=== PATIENT | female | born 1950 | race Caucasian/White ===

== ENCOUNTER 2017-05-13 08:31 | Outpatient (CLI) | payer MEDICARE ==
[2017-05-13 09:54] LABS: #Eosinphils 0.2 thou/uL (0.0-0.7); #Lymphocytes 1.9 thou/uL (1.20-3.40); #Monocytes 0.5 thou/uL (0.11-0.59); #Neutrophils 3.8 thou/uL (1.40-6.50); %Basophils 0.3 % (0.0-1.0); %Eosinophils 3.6 % (0.0-10.0); %Lymphocytes 29.8 % (21.0-51.0); %Monocytes 7.5 % (0.0-10.0); Hematocrit 43.5 % (36.0-47.0); Mean Platelet Volume 7.3 fL (7.4-10.4); White Blood Cell (WBC) Count 6.4 thou/uL (4.8-10.8)
[2017-05-13 10:17] LABS: Anion Gap 11 mmol/L (10-20); BUN (Urea Nitrogen) 13 mg/dL (9.8-20.1); Calc. Creatinine Clearance 0 mL/min (70-130); Carbon Dioxide 28 mmol/L (23-31); Chloride 107 mmol/L (98-107); Estimated GFR-MDRD 80
== END 2017-05-13 08:32 | disposition home or self-care (01) ==
LOC: LABBT 08:31
PROVIDERS: ATTEND Specialist
DX: Z01.818 Encounter for other preprocedural examination (principal); K43.2 Incisional hernia without obstruction or gangrene
CPT/HCPCS: 80048; 85025; 93005; 93010

== ENCOUNTER 2017-05-19 07:49 | Day surgery (SDC) | payer MEDICARE ==
[2017-05-13 08:55] VITALS: BMI 36.5
[2017-05-19] MEDS ORDERED: Ketorolac Tromethamine 30 MG/ML VIAL ONE (08:08)
[2017-05-19] MEDS ORDERED: Bicitra 30 ML UDCUP ONE (08:26)
[2017-05-19] MEDS ORDERED: Bupivacaine HCl 0.5%/Epinephrine 1:200,000/PF 30 ml Vial ONE (10:13)
[2017-05-19] MEDS ORDERED: Fentanyl 250 MCG/5 ML VIAL ONE (10:14)
[2017-05-19] MEDS ORDERED: Lidocaine 1% PF 5 ML VIAL ONE (10:44)
[2017-05-19] MEDS ORDERED: Propofol 200 MG/20 ML VIAL ONE (10:44)
[2017-05-19] MEDS ORDERED: PHENYLEPHRINE-NS 100 MCG/ML 10 ML SYRINGE ONE (10:44)
[2017-05-19] MEDS ORDERED: Ondansetron HCl/PF 4 MG/2 ML Vial ONE (10:44)
[2017-05-19] MEDS ORDERED: Succinylcholine Chloride 20 MG/ML 10 ml SYRINGE FS ONE (10:44)
[2017-05-19] MEDS ORDERED: Glycopyrrolate 0.2 MG/ML 5 ML SYRINGE ONE (10:44)
[2017-05-19] MEDS ORDERED: Fentanyl 100 MCG/2 ML VIAL ONE (14:23)
[2017-05-19] MEDS ORDERED: HYDROcodone/Acetaminophen 5/325 mg Tablet ONE (16:02)
--- NOTE | 2017-05-20 10:10 | OP ---
DATE OF PROCEDURE: 05/19/2017 PREOPERATIVE DIAGNOSIS: Ventral incisional hernia. POSTOPERATIVE DIAGNOSIS: Ventral incisional hernia. OPERATION PERFORMED: Robotic repair of a 12 x 5 cm upper abdominal incisional hernia with mesh cesar rossy. SURGEON: Jean Paul Alfaro M.D. ANESTHESIA: General endotracheal. INDICATIONS: The patient is a 66-year-old white female. She had undergone an upper abdominal surge ry utilizing a Chevron incision. She developed a wide hernia in her upper abdomen demonstrated on r ecent CT scan. She presents at this time for repair of this. DESCRIPTION OF OPERATION: Informed consent was obtained. The patient was taken to the operating ro om where general endotracheal anesthesia was obtained with the patient in supine position. Abdomen was prepped with ChloraPrep and draped in sterile fashion. Local anesthetic was infiltrated and a 1 2 mm infraumbilical incision was created through which a Veress needle was passed into the peritonea l cavity and pneumoperitoneum established using carbon dioxide up to a pressure of 15 mmHg. A 12 mm trocar port was passed through this same incision. Laparoscopic camera was passed this port. Unde r direct vision, two additional 8 mm robotic ports were placed, one in the right lower abdomen and o ne in the left lower abdomen. I finally placed an 11 mm assist port in the right lower quadrant. The robot was docked over the patient's right shoulder to the ports and the camera and the operation was continued from the console. There were substantial omental adhesions to the anterior abdominal wall and up within the hernia sac . There were a couple of areas of bowel appeared to be close to the abdominal wall as well. I meti culously dissected each of these adhesions using robotic guidance. There was never a point at which the bowel was close to being injured. I also cleared the falciform ligament in a superior fashion. After clearing all adhesions, I examined the obvious hernia defect. This appeared to be about 12 cm in width by about 5 cm in vertical dimension. I decided to close this using a running suture of 2- 0 Stratafix suture. This was begun from the right side and run towards the left for the full length of 1 suture. I then obtained a second suture and close this from left to right, overlapping signif icantly with the first suture. The pressure was dropped down to 7 to allow closure of the fascia wi thout undue tension. After the fascia was appropriately closed, pneumoperitoneum was reinstituted. I chose a 10 x 15 cm Ventralex mesh patch. This was passed into the abdominal cavity. A single stay suture of 0 Vicryl was placed in the center of the mesh patch and used to center the mesh in regards to the hernia that was closed. With held in place in this fashion, I closed the external aspect of the mesh using a r unning suture of 2-0 Stratafix. Bidirectional suture was utilized beginning from the midportion of the mesh on the superior aspect. This was then closed continuously around both sides with the sutur es again overlapping significantly on the inferior aspect. I then obtained 2-0 Ethibond suture and placed 4 interrupted [id number] sutures around the mesh . Three of these were placed around the circumference well, one was placed up within the center of the mesh, tacking it to the fascia near its midpoint. After all sutures were placed, the fascial de fect at the 12 mm port site was closed with 0 Vicryl suture using a GraNee needle. I also closed th e 11 mm defect in a similar fashion. All ports and instruments were removed under direct vision. P neumoperitoneum was carefully evacuated. Quarter percent Marcaine with epinephrine was infiltrated in each port site. Skin edges approximated with 4-0 Monocryl subcuticular suture and Dermabond was placed externally. There were no complications. The patient tolerated the procedure well and was t aken to recovery room in stable condition.
== END 2017-05-19 17:30 | disposition home or self-care (01) ==
LOC: SDC 07:49
PROVIDERS: ATTEND Specialist
PROC: 0WUF0JZ Supplement Abdominal Wall with Synthetic Substitute, Open Approach (ICD-10-PCS; principal; 2017-05-19)
DX: K43.2 Incisional hernia without obstruction or gangrene (principal); E03.9 Hypothyroidism, unspecified; J30.2 Other seasonal allergic rhinitis; M19.90 Unspecified osteoarthritis, unspecified site; H26.9 Unspecified cataract; Z79.899 Other long term (current) drug therapy; Z96.651 Presence of right artificial knee joint; Z90.89 Acquired absence of other organs; Z90.710 Acquired absence of both cervix and uterus; Z98.890 Other specified postprocedural states; Z86.711 Personal history of pulmonary embolism; Z87.891 Personal history of nicotine dependence
CPT/HCPCS: 96374; J0131; J0670; J1885; J2001; J2405; J2704; J3010

== ENCOUNTER 2017-06-29 21:33 | Emergency (ER) | payer MEDICARE ==
[2017-06-29 22:26] LABS: #Eosinphils 0.4 thou/uL (0.0-0.7); #Lymphocytes 2.2 thou/uL (1.20-3.40); #Monocytes 0.6 thou/uL (0.11-0.59); #Neutrophils 5.1 thou/uL (1.40-6.50); %Basophils 0.3 % (0.0-1.0); %Eosinophils 4.3 % (0.0-10.0); %Lymphocytes 26.4 % (21.0-51.0); %Monocytes 7.6 % (0.0-10.0); Hematocrit 40.4 % (36.0-47.0); Mean Platelet Volume 7.3 fL (7.4-10.4); Red Blood Cell (RBC) Count 4.49 mill/uL (4.20-5.40); White Blood Cell (WBC) Count 8.4 thou/uL (4.8-10.8)
[2017-06-29 22:46] LABS: ALT (SGPT) 24 U/L (8-55); AST (SGOT) 19 U/L (5-34); Alkaline Phosphatase 93 U/L (40-150); Anion Gap 11 mmol/L (10-20); BUN (Urea Nitrogen) 15 mg/dL (9.8-20.1); Bilirubin, Total 0.4 mg/dL (0.2-1.2); Calc. Creatinine Clearance 0 mL/min (70-130); Calcium 9.3 mg/dL (7.8-10.44); Carbon Dioxide 24 mmol/L (23-31); Chloride 106 mmol/L (98-107); Estimated GFR-MDRD 78; Globulin 2.9 g/dL (2.4-3.5); Protein, Total 6.7 g/dL (6.0-8.3)
== END 2017-06-29 23:40 | disposition home or self-care (01) ==
LOC: ERS 21:33
DX: M96.840 Postprocedural hematoma of a musculoskeletal structure following a musculoskeletal system procedure (principal); E03.9 Hypothyroidism, unspecified; Z98.890 Other specified postprocedural states; Z79.82 Long term (current) use of aspirin; Z79.899 Other long term (current) drug therapy
CPT/HCPCS: 36415; 80053; 85025; 99283

== ENCOUNTER 2017-10-31 07:35 | Outpatient (CLI) | payer MEDICARE ==
[2017-10-31] MEDS ORDERED: Iopamidol 370 76% 100 ML VIAL ONE (09:26)
--- NOTE | 2017-10-31 09:51 | CT ---
CT ABDOMEN WITH IV CONTRAST: Multiple axial tomograms obtained through the abdomen with IV enhancement. Oral contrast was not adm inistered. INDICATION: Recurrent ventral incisional hernia. COMPARISON: No comparison studies. FINDINGS: Lung bases are clear. The liver is unremarkable. There are post cholecystectomy changes. There is a small sliding diaphrag matic hernia. Pancreas is unremarkable. There is a small low-density focus seen peripheral spleen measuring 1.2 cm. Peripheral location with somewhat of a wedge-shaped configuration could indicate a small splenic infarct. Other consideratio ns include small splenic cyst. Visualized bowel loops appear normal caliber. Aorta is normal caliber. No adenopathy identified. T he adrenal glands and kidneys are unremarkable. There is an anterior abdominal wall hernia seen to the left of midline superior to the umbilicus. Th e abdominal wall defect measures approximately 3 cm width in the axial plane. Mesentery herniates th rough this defect. A small hernia sac within the subcutaneous tissues measures 5 cm width in the axi al plane. IMPRESSION: 1. Small anterior abdominal wall hernia to the left of midline is noted as described above. 2. Small low-density focus in the peripheral spleen as described above. 3. Small sliding diaphragmatic hernia. POS: [facility]
== END 2017-10-31 07:36 | disposition home or self-care (01) ==
LOC: CT 07:35
PROVIDERS: ATTEND Specialist
DX: K43.2 Incisional hernia without obstruction or gangrene (principal); K44.9 Diaphragmatic hernia without obstruction or gangrene
CPT/HCPCS: 74160; 82565

== ENCOUNTER 2018-06-08 12:05 | Outpatient (CLI) | payer MEDICARE ==
[2018-06-08 14:12] LABS: #Basophils 0.1 thou/uL (0.0-0.2); #Eosinphils 0.2 thou/uL (0.0-0.7); #Lymphocytes 1.6 thou/uL (1.20-3.40); #Monocytes 0.5 thou/uL (0.11-0.59); #Neutrophils 5.6 thou/uL (1.40-6.50); %Basophils 0.7 % (0.0-1.0); %Eosinophils 2.2 % (0.0-10.0); %Monocytes 5.7 % (0.0-10.0); %Neutrophils 71.3 % (42.0-75.0); Hemoglobin 14.4 g/dL (12.0-16.0); Mean Corpuscular Hemoglobin 29.6 pg (27.0-31.0); Mean Corpuscular Volume 92.5 fL (78.0-98.0); Mean Platelet Volume 8.2 fL (7.4-10.4); Platelet Count 177 thou/uL (130-400); RBC Distribution Width 12.4 % (11.5-14.5); Red Blood Cell (RBC) Count 4.86 mill/uL (4.20-5.40); White Blood Cell (WBC) Count 7.9 thou/uL (4.8-10.8)
[2018-06-08 14:32] LABS: Anion Gap 10 mmol/L (10-20); BUN (Urea Nitrogen) 19 mg/dL (9.8-20.1); Calc. Creatinine Clearance 0 mL/min (70-130); Calcium 9.5 mg/dL (7.8-10.44); Carbon Dioxide 26 mmol/L (23-31); Chloride 107 mmol/L (98-107); Estimated GFR-MDRD 75; Glucose 85 mg/dL (80-115); Potassium 3.9 mmol/L (3.5-5.1); Sodium 139 mmol/L (136-145)
--- NOTE | 2018-06-08 17:18 | EKG ---
Test Reason : Blood Pressure : / mmHG Vent. Rate : 064 BPM Atrial Rate : 064 BPM P-R Int : 144 ms QRS Dur : 080 ms QT Int : 386 ms P-R-T Axes : 040 051 070 degrees QTc Int : 398 ms Normal sinus rhythm ns st changes When compared with ECG of 13-MAY-2017 09:23, No significant change was found Confirmed by DR. Santiago JOHNSON ([id number]) on 06/08/2018 5:17:58 PM Referred By: DELORES Confirmed By:DR. Santiago JOHNSON
== END 2018-06-08 12:06 | disposition home or self-care (01) ==
LOC: LABBT 12:05
PROVIDERS: ATTEND Specialist
DX: Z01.818 Encounter for other preprocedural examination (principal); K43.2 Incisional hernia without obstruction or gangrene
CPT/HCPCS: 80048; 85025; 93005; 93010

== ENCOUNTER 2018-06-13 11:47 | Day surgery (SDC) | payer MEDICARE ==
[2018-06-08 12:20] VITALS: BMI 31.6
[2018-06-13] MEDS ORDERED: Ketorolac Tromethamine 30 MG/ML VIAL ONE ×2 (12:42→16:27)
[2018-06-13] MEDS ORDERED: CEFAZOLIN 2 GM/50 ML BAG ONE (12:42)
[2018-06-13] MEDS ORDERED: Famotidine/PF 20 mg/2ml Vial ONE (14:19)
[2018-06-13] MEDS ORDERED: Fentanyl 250 MCG/5 ML VIAL ONE (16:25)
[2018-06-13] MEDS ORDERED: Lidocaine 1% PF 5 ML VIAL ONE (16:27)
[2018-06-13] MEDS ORDERED: ePHEDrine/0.9% NaCl/PF SYRINGE 50 mg/10 ml ONE (16:27)
[2018-06-13] MEDS ORDERED: Ondansetron PF 4 MG/2 ML Vial ONE (16:27)
[2018-06-13] MEDS ORDERED: PROPOFOL 200 MG/20 ML VIAL ONE (16:27)
[2018-06-13] MEDS ORDERED: Dexamethasone 20 MG/5 ML VIAL ONE (16:27)
[2018-06-13] MEDS ORDERED: Bupivacaine/Epinephrine 0.25% 30 ML VIAL ONE (16:37)
[2018-06-13] MEDS ORDERED: Fentanyl 100 MCG/2 ML VIAL ONE ×2 (16:51→20:00)
[2018-06-13] MEDS ORDERED: HYDROmorphone 2 MG/ML VIAL ONE (16:51)
[2018-06-13] MEDS ORDERED: Morphine 2 MG/ML SYRINGE ONE (20:53)
[2018-06-13] MEDS ORDERED: HYDROcodone/Acetaminophen 5/325 mg Tablet ONE (21:18)
--- NOTE | 2018-06-14 15:44 | OP ---
DATE OF PROCEDURE: 06/13/2018 PREOPERATIVE DIAGNOSES: Robotic repair of ventral incisional hernia. SURGEON: Dr. Jean Paul Alfaro ANESTHESIA: General endotracheal. INDICATIONS: The patient is a 67-year-old white female. About a year ago, I repaired a large incisi onal hernia from her upper abdominal Chevron incision. This was a lengthy hernia that extended along the entire length of the prior incision. This was repaired robotically. Several months afterwards she developed a new/recurrent hernia at the far left aspect. It is uncertain whether this was a new hernia or recurrence of the same one. I recommended repair. Additionally, she complained of a sensa tion of some discomfort/movement to the right side of her abdomen and I inspected this as well. OPERATIVE PROCEDURE IN DETAIL: Informed consent was obtained. The patient was taken to the operatin g room where general endotracheal anesthesia obtained with the patient in supine position. Abdomen w as prepped with ChloraPrep and draped in sterile fashion. Local anesthetic was infiltrated using 0.2 5% Marcaine with epinephrine and a 12 mm infraumbilical incision was created through which a Veress n eedle was passed into the peritoneal cavity and pneumoperitoneum established using carbon dioxide up to a pressure of 15 mmHg. A 12 mm trocar was passed through this same incision. Laparoscopic camera was passed through this port. Under direct vision, I placed 2 additional 8 mm ports on either side of midline. There were some omental adhesions up to the anterior abdominal wall that extended down close to the m idline port. These were taken down sharply until the robot could be appropriately docked. The robot was then docked to the 3 ports and the camera and operation was continued from the console. Immediately I was able to see the hernia to the far left site of the prior repair. I carefully took down omental adhesions to the anterior abdominal wall and into the patch. Examination revealed that there had been an excellent epithelialization of the patch and in most areas it was difficult to disc bulmaro. It appeared that the hernia was at the exact far edge of the patch on the patient's left hand s betzaida. There was no patch rolled up into the hernia to indicate that the mesh patch had moved. Because of her concerns, I spent a long time trying to lyse the adhesions to the right side of the ab domen. There were some areas of colon that was close to the mesh, but I was able to mobilize this do wn off of the mesh. The mesh was flush and in excellent position with no evidence of any inversion o r hernia. The vast majority of the adhesions were mobilized. I then turned my attention back over t o the hernia. I cleared the fascia around the hernia defect. When this was measured, this was found to be about 2 cm wide x 4 cm in length and this was in a vertical/longitudinal fashion. The defect was closed with a running suture of #1 V-Loc. This was closed in a to and fro fashion inc orporating excellent bites of tissue on each side. I then obtained an 8 cm Ventralex mesh patch. Th e tails were trimmed off of this and it was passed into the abdominal cavity. This was secured to th e center of the repair with a #1 V-Loc suture. I then circumferentially sewed the patch to the abdom inal wall with a running suture of 2-0 V-Loc. This required 2 suture lengths to complete. It was ex cellently approximated against the abdominal wall. The 12 mm port site was closed with 0 Vicryl and a GraNee needle. All ports and instruments removed under direct vision. Pneumoperitoneum was carefully evacuated. Quarter percent Marcaine with epinep hrine was infiltrated at each port site. Skin edges approximated with 4-0 Monocryl subcuticular sutu re. Dermabond was placed externally. A compression dressing was placed over the hernia sac with a b paul and a Kerlix roll.
== END 2018-06-13 22:19 | disposition home or self-care (01) ==
LOC: SDC 11:47
PROVIDERS: ATTEND Specialist
PROC: 0WUF4JZ Supplement Abdominal Wall with Synthetic Substitute, Percutaneous Endoscopic Approach (ICD-10-PCS; principal; 2018-06-13)
DX: K43.2 Incisional hernia without obstruction or gangrene (principal); K66.0 Peritoneal adhesions (postprocedural) (postinfection); E03.9 Hypothyroidism, unspecified; J30.2 Other seasonal allergic rhinitis; Z87.891 Personal history of nicotine dependence; Z79.82 Long term (current) use of aspirin; Z79.899 Other long term (current) drug therapy; Z98.890 Other specified postprocedural states
CPT/HCPCS: 49654; 96374 ×2; C1781; J0131; J1100; J1170; J1885; J2001; J2270; J2405; J2704; J3010; S0028

== ENCOUNTER 2019-04-30 07:20 | Outpatient (CLI) | payer MEDICARE ==
[2019-04-30 14:45] LABS: #Basophils 0.1 thou/uL (0.0-0.2); #Eosinphils 0.1 thou/uL (0.0-0.7); #Lymphocytes 1.6 thou/uL (1.20-3.40); #Monocytes 0.4 thou/uL (0.11-0.59); #Neutrophils 4.2 thou/uL (1.40-6.50); %Basophils 0.9 % (0.0-1.0); %Eosinophils 1.8 % (0.0-10.0); %Neutrophils 66.3 % (42.0-75.0); Hemoglobin 14.5 g/dL (12.0-16.0); Mean Corpuscular HGB CONC 33.7 g/dL (32.0-36.0); Mean Corpuscular Hemoglobin 30.1 pg (27.0-31.0); Mean Corpuscular Volume 89.5 fL (78.0-98.0); Platelet Count 168 thou/uL (130-400); RBC Distribution Width 12.4 % (11.5-14.5); White Blood Cell (WBC) Count 6.3 thou/uL (4.8-10.8)
[2019-04-30 15:05] LABS: Anion Gap 12 mmol/L (10-20); BUN (Urea Nitrogen) 12 mg/dL (9.8-20.1); Calc. Creatinine Clearance 0 mL/min (70-130); Carbon Dioxide 26 mmol/L (23-31); Chloride 105 mmol/L (98-107); Estimated GFR-MDRD 64; Glucose 118 mg/dL (80-115); Potassium 3.7 mmol/L (3.5-5.1); Sodium 139 mmol/L (136-145)
--- NOTE | 2019-05-02 19:50 | EKG ---
Test Reason : Blood Pressure : / mmHG Vent. Rate : 078 BPM Atrial Rate : 078 BPM P-R Int : 136 ms QRS Dur : 078 ms QT Int : 374 ms P-R-T Axes : 039 048 070 degrees QTc Int : 426 ms Normal sinus rhythm Cannot rule out Anterior infarct , age undetermined Abnormal ECG When compared with ECG of 08-JUN-2018 12:45, Minimal criteria for Anterior infarct are now Present Nonspecific T wave abnormality, worse in Lateral leads Confirmed by RICHIE FONTANA, DR. Krishnan (4) on 05/02/2019 7:50:25 PM Referred By: RACHAEL Confirmed By:DR. Ariella QUIROZ MD
== END 2019-04-30 07:21 | disposition home or self-care (01) ==
LOC: LABBT 07:20
PROVIDERS: ATTEND Surgery
DX: Z01.818 Encounter for other preprocedural examination (principal); C50.919 Malignant neoplasm of unspecified site of unspecified female breast
CPT/HCPCS: 80048; 85025; 93005; 93010

== ENCOUNTER 2019-04-30 13:25 | Outpatient (CLI) | payer MEDICARE ==
--- NOTE | 2019-04-30 14:05 | ULT ---
RIGHT AXILLARY ULTRASOUND: Date: 04/30/19 INDICATION: Rule out axillary lymphadenopathy. FINDINGS: Survey view of the right axilla demonstrates a single, benign-appearing lymph node within the right a xilla, measuring 0.97 x 0.51 cm. The lymph node cortex measured 2.0 mm. No additional lymph node was identified. IMPRESSION: No lymphadenopathy evident within the right axilla. POS: [facility]
== END 2019-04-30 13:26 | disposition home or self-care (01) ==
LOC: BICULT 13:25
PROVIDERS: ATTEND Surgery
DX: C50.919 Malignant neoplasm of unspecified site of unspecified female breast (principal)
CPT/HCPCS: 76999; 80048; 85025; 93005; 93010

== ENCOUNTER 2019-05-04 07:14 | Day surgery (SDC) | payer MEDICARE ==
[2019-04-30 12:57] VITALS: BMI 32.4
[2019-05-04] MEDS ORDERED: Lidocaine 2% PF 5 ML VIAL ONE (10:15)
[2019-05-04] MEDS ORDERED: Methylene Blue 50 MG/10 ML AMPUL ONE (10:15)
[2019-05-04] MEDS ORDERED: Bupivacaine/Epinephrine 0.25% 30 ML VIAL ONE (10:15)
[2019-05-04] MEDS ORDERED: Fentanyl 100 MCG/2 ML VIAL ONE ×2 (11:20→13:13)
[2019-05-04] MEDS ORDERED: Midazolam HCl 2 mg/2 ml Vial ONE (11:20)
[2019-05-04] MEDS ORDERED: Rocuronium Bromide 10 MG/ML (10ML VIAL) ONE (11:39)
[2019-05-04] MEDS ORDERED: Ondansetron PF 4 MG/2 ML Vial ONE (11:39)
[2019-05-04] MEDS ORDERED: Dexamethasone 20 MG/5 ML VIAL ONE (11:39)
[2019-05-04] MEDS ORDERED: Glycopyrrolate 0.2 MG/ML 5 ML SYRINGE ONE (11:39)
[2019-05-04] MEDS ORDERED: Lidocaine 1% PF 5 ML VIAL ONE (11:39)
[2019-05-04] MEDS ORDERED: PROPOFOL 200 MG/20 ML VIAL ONE (11:39)
[2019-05-04] MEDS ORDERED: Morphine 4 MG/ML VIAL ONE ×2 (12:53→13:08)
[2019-05-04] MEDS ORDERED: Morphine Sulfate 2 MG/ML SYRINGE SLOW IVP PRN (13:11)
[2019-05-04] MEDS ORDERED: Promethazine HCl 25 MG/ML VIAL IM/IV PRN (13:11)
[2019-05-04] MEDS ORDERED: Ondansetron HCl/PF 4 MG/2 ML Vial IVP PRN (13:11)
[2019-05-04] MEDS ORDERED: Non-Formulary Medication 1 EACH PO PRN (13:11)
[2019-05-04] MEDS ORDERED: PACU-Morphine 4MG/ML VIAL SLOW IVP PRN (13:11)
--- NOTE | 2019-05-04 13:18 | MMO ---
Needle localization right breast HISTORY: Right breast cancer. FINDINGS: After signed procedure and answering all questions, the microcalcification cluster and biop sy clip at the medial aspect of the right breast was visualized. Sterile technique, buffered local anesthesia, mammographic guidance, and a medial approach were used to carefully advance a 5 cm Elizabeth needle and wire to the posterior margin of the microcalcification cluster, hook encircling the localization clip and cluster. Position was confirmed with mammography. Patient tolerated the procedu re well and was transferred in good condition. IMPRESSION: Technically successful needle localization right breast cancer.
--- NOTE | 2019-05-04 13:23 | MMO ---
NEEDLE LOCALIZATION RIGHT BREAST SURGICAL SPECIMEN MAMMOGRAPHY RIGHT BREAST HISTORY: Right breast cancer. FINDINGS: After explaining the procedure and answering all questions, the microcalcification cluster and biopsy clip at the medial aspect of the right breast was visualized. Sterile technique, buffered local anesthesia, mammographic guidance, and a medial approach were used to carefully advanc e a 5 cm Palm needle and wire through the posterior margin of the microcalcification cluster. The wire encircles the microcalcification cluster and clip. Patient tolerated the procedure well and was transferred to day surgery in good condition. Mammographic evaluation of the surgical specimen obtained by Dr. Ulloa shows the localization wire, clip, and microcalcification cluster within the tissue. IMPRESSION: Technically successful needle localization right breast cancer.
--- NOTE | 2019-05-04 13:32 | NM ---
Lymphoscintigraphy right breast HISTORY: Right breast cancer. FINDINGS: After explaining the procedure and answering all questions, the anterior aspect of the righ t breast was cleansed. Sterile technique was then used to place a total volume of 1 cc liquid containing 367 uCi technetium 99m filtered sulfur colloid in 4 equal aliquots into the skin at the 12 :00, 3:00, 6:00, and 9:00 periareolar positions of the right breast. Injection sites were massaged by the patient and imaging performed. Immediate images show collection radiotracer at the axillary tail of the right breast. Skin overlying the sentinel node was marked and patient sent for day surgery. Patient tolerated the procedure well and was transferred in good condition. IMPRESSION: Technically successful lymphoscintigraphy right breast revealing axillary sentinel node.
[2019-05-04] MEDS ORDERED: HYDROcodone/Acetaminophen 5/325 mg Tablet ONE (14:22)
--- NOTE | 2019-05-04 15:15 | OP ---
DATE OF PROCEDURE: 05/04/2019 PREOPERATIVE DIAGNOSIS: Right breast cancer. POSTOPERATIVE DIAGNOSIS: Right breast cancer. PROCEDURE PERFORMED: 1. Right partial mastectomy after needle localization. 2. Right deep axillary node sentinel node protocol. ANESTHESIA: General. ESTIMATED BLOOD LOSS: Minimal. COMPLICATIONS: None. FINDINGS: Right breast cancer. DESCRIPTION OF PROCEDURE: The patient was taken to the operating room and laid supine on the operating room table. After general anesthetic was obtained, the bilateral 5 mL of methylene blue dye was infiltrated on the right nipple and massaged for 10 minutes. The right chest breast was prepped and draped in a sterile fashion. Curved incision was made in the right axilla. Scar dissected down through clavipectoral fascia. The Neoprobe was used to find a blue node and area of increased uptake on the gamma probe. This lymph node had high counts on the back table. The background count dropped to near zero. Sent to Pathology for final pathology. An incision was made near the entrance of the needle localization wire in the right upper chest. Flaps were raised superomedially and inferolaterally around the end of the needle localization wire, sent to x-ray for specimen x-ray. This specimen was marked with 2 short superior, one long lateral, and sent to Path for final diagnosis. The wound was irrigated. Local anesthetic was applied. The wound was closed using 3-0 Vicryl, 4-0 Monocryl, and Dermabond. The patient was sent to Recovery in stable condition. All instrument counts, needle counts, and lap counts were correct. Job ID: [id number]
== END 2019-05-04 15:08 | disposition home or self-care (01) ==
LOC: SDC 07:14
PROVIDERS: ATTEND Surgery
PROC: 0HBT0ZZ Excision of Right Breast, Open Approach (ICD-10-PCS; principal; 2019-05-04)
PROC: 07B50ZZ Excision of Right Axillary Lymphatic, Open Approach (ICD-10-PCS; 2019-05-04)
DX: D05.11 Intraductal carcinoma in situ of right breast (principal); E03.9 Hypothyroidism, unspecified; Z79.82 Long term (current) use of aspirin; Z79.899 Other long term (current) drug therapy
CPT/HCPCS: 19281; 19301; 38525; 38900; 76098; 78195; A9541; Q9968; 88307; 88341; 88342; J0690; J1100; J2001; J2250; J2270; J2405; J2704; J3010

== ENCOUNTER 2019-08-02 09:26 | Outpatient (CLI) | payer MEDICARE ==
--- NOTE | 2019-08-02 10:21 | BD ---
DEXA BONE DENSITY STUDY: HISTORY: Postmenopausal. FINDINGS: Lumbar Spine: BMD (g/cm2) L1 0.826 T-Score: -1.5 L2 0.860 T-Score: -1.5 L3 0.921 T-Score: -1.5 L4 0.932 T-Score: -1.2 L1-L4 0.889 T-Score: -1.4 Femoral Neck: 0.603 T-Score: -2.2 Total Femur: 0.775 T-Score: -1.4 Impression: 1. Osteopenia of the lumbar spine and left femoral neck. 2. Ten-year fracture risk of a major osteoporotic fracture is 12% and a hip fracture of 2.3%. These fracture probabilities were calculated for an untreated patient. POS: [facility]
== END 2019-08-02 09:27 | disposition home or self-care (01) ==
LOC: BICMAMMO 09:26
PROVIDERS: ATTEND Internal Medicine Hematology & Oncology
DX: Z13.820 Encounter for screening for osteoporosis (principal); N95.9 Unspecified menopausal and perimenopausal disorder; C50.211 Malignant neoplasm of upper-inner quadrant of right female breast; M85.89 Other specified disorders of bone density and structure, multiple sites
CPT/HCPCS: 77080

== ENCOUNTER 2020-01-03 16:06 | Outpatient (CLI) | payer MEDICARE ==
--- NOTE | 2020-01-03 16:47 | RAD ---
LEFT RIBS: 01/03/20 Three views. HISTORY: Contusion left chest. No evidence of left rib fracture identified. No rib lesions seen. IMPRESSION: No acute left rib abnormality identified. The left lung appears aerated and clear. POS: [facility]
== END 2020-01-03 16:07 | disposition home or self-care (01) ==
LOC: BICRAD 16:06
PROVIDERS: ATTEND Family Medicine
DX: S20.212A Contusion of left front wall of thorax, initial encounter (principal)

== ENCOUNTER 2020-09-08 14:00 | Outpatient (CLI) | payer MEDICARE ==
--- NOTE | 2020-09-08 15:21 | ULT ---
RENAL ULTRASOUND: INDICATIONS: Hematuria. FINDINGS: The right kidney measured 10.3 cm length. The right kidney shows no hydronephrosis or mass lesion. The left kidney measures 10.2 cm length. Mild left hydronephrosis. No mass or cyst. Bladder is mil dly distended and unremarkable. Postvoid exam shows complete emptying of the bladder. IMPRESSION: Mild left hydronephrosis. POS: [facility]
== END 2020-09-08 14:01 | disposition home or self-care (01) ==
LOC: BICULT 14:00
PROVIDERS: ATTEND Family Medicine
DX: R31.0 Gross hematuria (principal); N13.30 Unspecified hydronephrosis
CPT/HCPCS: 76770

== ENCOUNTER 2020-09-08 14:07 | Outpatient (CLI) | payer MEDICARE ==
--- NOTE | 2020-09-08 15:13 | BD ---
BONE DENSITOMETRY: Date: 09/08/2020 HISTORY: Postmenopausal screening. FINDINGS: Lumbar Spine: BMD (g/cm2) L1 0.934 T-Score: -0.5 L2 0.951 T-Score: -0.7 L3 0.941 T-Score: -1.3 L4 1.015 T-Score: -0.4 Total 0.965 T-Score: -0.7 Total bone mineral density of 08/02/2019: 0.889 Left Femoral Neck: 0.566 T-Score: -2.5 Total Femur: 0.794 T-Score: -1.2 Total bone mineral density of 08/02/2019: 0.775 IMPRESSION: 1. Bone mineral density of the femoral neck indicates osteoporosis. 2. Bone mineral density of the lumbar spine within normal range. POS: [facility]
== END 2020-09-08 14:08 | disposition home or self-care (01) ==
LOC: BICMAMMO 14:07
PROVIDERS: ATTEND Internal Medicine Hematology & Oncology
DX: M81.0 Age-related osteoporosis without current pathological fracture (principal); C50.211 Malignant neoplasm of upper-inner quadrant of right female breast
CPT/HCPCS: 77080

== ENCOUNTER 2021-09-02 14:39 | Outpatient (CLI) | payer MEDICARE ==
[2021-09-02 15:23] LABS: #Eosinphils 0.1 10x3/uL (0.0-0.5); #Monocytes 0.4 10x3/uL (0.0-1.1); #Neutrophils 5.7 10x3/uL (1.5-8.4); %Basophils 0.3 % (0.0-2.0); %Eosinophils 1.5 % (0.0-6.0); %Lymphocytes 17.2 % (18.0-47.0); %Monocytes 5.7 % (0.0-10.0); Hemoglobin 13.1 g/dL (12.0-15.5); Mean Corpuscular HGB CONC 31.9 g/dL (32.0-36.0); Mean Corpuscular Hemoglobin 30.1 pg (27.0-33.0); Mean Corpuscular Volume 94.5 fl (81.6-98.3); Mean Platelet Volume 10.2 fl (7.4-10.4); Platelet Count 182 10x3/uL (150-450); RBC Distribution Width 14.1 % (11.5-14.5); Red Blood Cell (RBC) Count 4.35 10x6/uL (3.90-5.03); White Blood Cell (WBC) Count 7.6 10x3/uL (3.5-10.5)
[2021-09-02 15:47] LABS: INR-International Normal Ratio 1.1; Prothrombin Time 11.8 sec (9.5-12.1)
[2021-09-02 15:49] LABS: Anion Gap 11 mmol/L (10-20); BUN (Urea Nitrogen) 24 mg/dL (9.8-20.1); Calc. Creatinine Clearance 0 mL/min (70-130); Carbon Dioxide 27 mmol/L (23-31); Chloride 106 mmol/L (98-107); Potassium 4.3 mmol/L (3.5-5.1); Sodium 140 mmol/L (136-145)
[2021-09-02 15:50] LABS: Calcium 8.9 mg/dL (7.8-10.44); Glucose 101 mg/dL (83-110)
[2021-09-03 07:37] LABS: SARS-CoV-2 PCR by NAA Not Detected (NotDetected)
== END 2021-09-02 14:40 | disposition home or self-care (01) ==
LOC: LABBT 14:39
PROVIDERS: ATTEND Orthopaedic Surgery
DX: Z01.812 Encounter for preprocedural laboratory examination (principal); M17.12 Unilateral primary osteoarthritis, left knee; Z20.822 Contact with and (suspected) exposure to COVID-19
CPT/HCPCS: 80048; 85025; 85610; 87081; U0003; U0005

== ENCOUNTER 2021-09-08 06:02 | Observation (INO) | payer MEDICARE ==
[2021-09-08] MEDS ORDERED: Sodium Chloride 0.9% 100 ML ONE (06:08)
[2021-09-08] MEDS ORDERED: Vancomycin 1 GM/200 ML BAG ONE (06:08)
[2021-09-08] MEDS ORDERED: Tranexamic Acid 1,000 MG/10 ML VIAL ONE (06:08)
[2021-09-08] MEDS ORDERED: Bupivacaine PF 0.5% 30 ML VIAL ONE (06:30)
[2021-09-08] MEDS ORDERED: Fentanyl 100 MCG/2 ML VIAL ONE ×4 (06:38→09:25)
[2021-09-08] MEDS ORDERED: Midazolam HCl 2 mg/2 ml Vial ONE (06:38)
[2021-09-08] MEDS ORDERED: Zolpidem Tartrate 5 MG TAB PO PRN ×2 (06:59→08:45)
[2021-09-08] MEDS ORDERED: HYDROcodone/Acetaminophen 10/325 mg Tablet PO PRN ×4 (06:59→08:45)
[2021-09-08] MEDS ORDERED: Ondansetron PF 4 MG/2 ML Vial IVP PRN ×2 (06:59→08:45)
[2021-09-08] MEDS ORDERED: Promethazine HCl 25 MG/ML VIAL IM PRN ×3 (06:59→08:47)
[2021-09-08] MEDS ORDERED: diphenhydrAMINE 25 MG CAP PO PRN (06:59)
[2021-09-08] MEDS ORDERED: ceFAZolin 2 GM/Dextrose 50 ML IVPB ONE (07:00)
[2021-09-08] MEDS ORDERED: Lidocaine 1% PF 5 ML VIAL ONE (07:18)
[2021-09-08] MEDS ORDERED: Bupivacaine HCl 0.5%/Epinephrine 1:200,000/PF 30 ml Vial ONE (07:18)
[2021-09-08] MEDS ORDERED: PROPOFOL 200 MG/20 ML VIAL ONE (07:18)
[2021-09-08] MEDS ORDERED: Dexamethasone 20 MG/5 ML VIAL ONE (07:18)
[2021-09-08] MEDS ORDERED: Ondansetron PF 4 MG/2 ML Vial ONE (07:18)
[2021-09-08] MEDS ORDERED: traMADol HCl 50 MG TAB PO PRN ×2 (08:45)
[2021-09-08] MEDS ORDERED: Ropivacaine 0.2% 550 ML 550 ML NERVE BLCK SCH (08:45)
[2021-09-08] MEDS ORDERED: Fentanyl 100 MCG/2 ML VIAL SLOW IVP PRN (08:45)
[2021-09-08] MEDS ORDERED: Ondansetron HCl/PF 4 MG/2 ML Vial IVP PRN (08:47)
[2021-09-08] MEDS ORDERED: Promethazine HCl 25 MG/ML VIAL IVPB PRN (08:47)
[2021-09-08] MEDS ORDERED: Ketorolac Tromethamine 30 MG/ML VIAL ONE (09:15)
[2021-09-08] MEDS: Sodium Chloride 0.9% 1,000 ML IV SCH ×3 (10:40→22:33)
[2021-09-08] MEDS: Aspirin 81 mg Enteric Coated Tablet PO SCH ×2 (10:40→21:27)
[2021-09-08 10:46] VITALS: BMI 29.2
[2021-09-08] MEDS: Ketorolac Tromethamine 30 MG/ML VIAL IVP SCH ×3 (12:03→22:31)
[2021-09-08] MEDS ORDERED: Ketorolac Tromethamine 30 MG/ML VIAL IM SCH (14:00)
[2021-09-08] MEDS ORDERED: ceFAZolin 2 GM/Dextrose 50 ML 2 GM in Premix Bag 1 BAG IVPB SCH (15:00)
[2021-09-08] MEDS: ceFAZolin 2 GM/Dextrose 50 ML 2 GM in Premix Bag 1 BAG IVPB SCH ×2 (15:52→22:54)
[2021-09-08] MEDS ORDERED: Aspirin Chewable 81 MG TAB PO SCH (21:00)
[2021-09-08] MEDS: Ascorbic Acid 500 mg Chewable Tablet PO SCH (21:28)
[2021-09-08] MEDS: Cholecalciferol 1,000 UNITS (25 MCG) TAB PO SCH (21:28)
[2021-09-08] MEDS: Losartan 25 MG TAB PO SCH (21:28)
[2021-09-08] MEDS: Melatonin 3 MG TAB PO SCH (21:28)
[2021-09-09] MEDS: Levothyroxine Sodium 100 MCG TAB PO SCH (05:30)
[2021-09-09] MEDS: Ketorolac Tromethamine 30 MG/ML VIAL IVP SCH ×4 (05:30→23:43)
[2021-09-09 06:22] LABS: Hemoglobin 11.7 g/dL (12.0-16.0); Mean Corpuscular HGB CONC 33.1 g/dL (32.0-36.0); Mean Corpuscular Hemoglobin 31.6 pg (27.0-31.0); Mean Corpuscular Volume 95.6 fL (78.0-98.0); Mean Platelet Volume 7.6 fL (7.4-10.4); Platelet Count 137 thou/uL (130-400); White Blood Cell (WBC) Count 5.9 thou/uL (4.8-10.8)
[2021-09-09] MEDS: Aspirin 81 mg Enteric Coated Tablet PO SCH ×2 (08:22→20:27)
[2021-09-09] MEDS: Senokot S 8.6-50 MG TAB PO SCH ×2 (08:22→20:27)
[2021-09-09] MEDS: Ferrous Gluconate 324 MG TAB PO SCH ×2 (08:22→17:43)
[2021-09-09] MEDS: Enoxaparin Sodium 40 MG/0.4 ML SYRINGE SC SCH (08:23)
[2021-09-09] MEDS: Multivitamin W/ Minerals 1 TAB PO SCH (08:23)
[2021-09-09] MEDS: Sodium Chloride 0.9% 1,000 ML IV SCH ×2 (13:38→23:40)
[2021-09-09] MEDS: Acetaminophen 325 MG TAB PO PRN ×2 (14:49→20:28)
[2021-09-09] MEDS: Cholecalciferol 1,000 UNITS (25 MCG) TAB PO SCH (20:27)
[2021-09-09] MEDS: Ascorbic Acid 500 mg Chewable Tablet PO SCH (20:28)
[2021-09-09] MEDS: Losartan 25 MG TAB PO SCH (20:28)
[2021-09-09] MEDS: Melatonin 3 MG TAB PO SCH (20:34)
[2021-09-09] MEDS ORDERED: Zinc Sulfate 220 MG CAP PO SCH (21:00)
[2021-09-10] MEDS: Acetaminophen 325 MG TAB PO PRN (03:01)
[2021-09-10] MEDS: Ketorolac Tromethamine 30 MG/ML VIAL IVP SCH (05:43)
[2021-09-10] MEDS: Levothyroxine Sodium 100 MCG TAB PO SCH (05:43)
[2021-09-10] MEDS: Ferrous Gluconate 324 MG TAB PO SCH (08:33)
[2021-09-10] MEDS: Aspirin 81 mg Enteric Coated Tablet PO SCH (08:33)
[2021-09-10] MEDS: Enoxaparin Sodium 40 MG/0.4 ML SYRINGE SC SCH (08:33)
[2021-09-10] MEDS: Multivitamin W/ Minerals 1 TAB PO SCH (08:33)
[2021-09-10] MEDS: Senokot S 8.6-50 MG TAB PO SCH (08:33)
[2021-09-10] MEDS: Sodium Chloride 0.9% 1,000 ML IV SCH (10:26)
[2021-09-10 12:16] VITALS: BP 110/72; TEMP 98.4
== END 2021-09-10 12:26 | disposition home or self-care (01) ==
LOC: SDC 06:02 → SURG A 06:59 → SDC 10:52 → SURG A 10:52
PROVIDERS: ADMIT Orthopaedic Surgery; ATTEND Orthopaedic Surgery
PROC: 0SRD0J9 Replacement of Left Knee Joint with Synthetic Substitute, Cemented, Open Approach (ICD-10-PCS; principal; 2021-09-08)
PROC: 8E0YXBZ Computer Assisted Procedure of Lower Extremity (ICD-10-PCS; 2021-09-08)
PROC: 3E0T3BZ Introduction of Anesthetic Agent into Peripheral Nerves and Plexi, Percutaneous Approach (ICD-10-PCS; 2021-09-08)
DX: M17.12 Unilateral primary osteoarthritis, left knee (principal); E03.9 Hypothyroidism, unspecified; Z87.891 Personal history of nicotine dependence; Z79.82 Long term (current) use of aspirin; Z79.899 Other long term (current) drug therapy; Z96.651 Presence of right artificial knee joint
CPT/HCPCS: 20985; 27447; 64448; 73560; 85027; 97110 ×3; 97116 ×3; 97139 ×2; 97530 ×2; A4306; C1713; C1776; 36415; 96365; 96372; 96375; 96376; G0378; J0690; J1100; J1650; J1885; J2250; J2405; J2704; J2795; J3010; J3370; J3490; J7050; S0020

== ENCOUNTER 2022-08-20 14:45 | Outpatient (CLI) | payer MEDICARE | END 2022-08-20 14:46 | disposition home or self-care (01) | LOC: BICRAD 14:45 | PROVIDERS: ATTEND Family Medicine | DX: M54.42 Lumbago with sciatica, left side (principal); M47.26 Other spondylosis with radiculopathy, lumbar region; M25.78 Osteophyte, vertebrae; G35 Multiple sclerosis | CPT/HCPCS: 72100; 72202 ==

== ENCOUNTER 2023-09-20 14:15 | Outpatient (CLI) | payer MEDICARE | END 2023-09-20 14:16 | disposition home or self-care (01) | LOC: BICMAMMO 14:15 | PROVIDERS: ATTEND Surgery | DX: Z08 Encounter for follow-up examination after completed treatment for malignant neoplasm (principal); N63.10 Unspecified lump in the right breast, unspecified quadrant; Z85.3 Personal history of malignant neoplasm of breast | CPT/HCPCS: 76642; 77066; G0279 ==

== ENCOUNTER 2024-06-26 10:41 | Emergency (ER) | payer MEDICARE ==
[2024-06-26 11:33] LABS: #Basophils 0.03 10x3/uL (0.0-0.2); %Basophils 0.4 % (0.0-1.0); %Eosinophils 0.7 % (0.0-10.0); %Lymphocytes 11.5 % (21.0-51.0); %Monocytes 5.1 % (0.0-10.0); %Neutrophils 82.1 % (42.0-75.0); Hematocrit 44.2 % (36.0-47.0); Hemoglobin 14.7 g/dL (12.0-16.0); Mean Corpuscular HGB CONC 33.3 g/dL (32.0-36.0); Mean Corpuscular Hemoglobin 30.2 pg (27.0-31.0); Mean Corpuscular Volume 90.8 fL (78.0-98.0); Mean Platelet Volume 9.1 fL (7.4-10.4); Platelet Count 192 10x3/uL (130-400); Red Blood Cell (RBC) Count 4.87 mill/uL (4.20-5.40)
[2024-06-26 11:51] LABS: ALT (SGPT) 47 U/L (8-55); AST (SGOT) 83 U/L (5-34); Alkaline Phosphatase 104 U/L (40-110); Anion Gap 15 mmol/L (10-20); BUN (Urea Nitrogen) 13 mg/dL (9.8-20.1); Bilirubin, Total 0.5 mg/dL (0.2-1.2); Calc. Creatinine Clearance 0 mL/min (70-130); Calcium 9.1 mg/dL (7.8-10.44); Carbon Dioxide 25 mmol/L (23-31); Chloride 103 mmol/L (98-107); Estimated GFR 93; Globulin 3.4 g/dL (2.4-3.5); Glucose 93 mg/dL (83-110); Protein, Total 7.4 g/dL (5.8-8.1); Sodium 139 mmol/L (136-145)
[2024-06-26 11:57] LABS: Troponin I Less than 0.010 ng/mL (< 0.028)
[2024-06-26 15:19] LABS: Troponin I Less than 0.010 ng/mL (< 0.028)
== END 2024-06-26 15:30 | disposition home or self-care (01) ==
LOC: ERS 10:41
DX: R07.89 Other chest pain (principal); E03.9 Hypothyroidism, unspecified; Z55.6 Problems related to health literacy; Z79.82 Long term (current) use of aspirin
CPT/HCPCS: 36415; 71045; 71250; 80053; 83735; 84443; 84484; 85025; 93005

== ENCOUNTER 2024-09-24 10:37 | Outpatient (CLI) | payer MEDICARE | END 2024-09-24 10:38 | disposition home or self-care (01) | LOC: BICMAMMO 10:37 | PROVIDERS: ATTEND Family Medicine | DX: Z12.31 Encounter for screening mammogram for malignant neoplasm of breast (principal); Z86.000 Personal history of in-situ neoplasm of breast; Z98.890 Other specified postprocedural states | CPT/HCPCS: 77063; 77067 ==